=== PATIENT | female | born 1980 | race Caucasian/White ===

== ENCOUNTER 2025-02-14 15:51 | Outpatient (CLI) | payer BC, SELFPAY ==
--- NOTE | ~2025-02-14 | MM_ITS ---
EXAMINATION: MM screening [facility] BI w alisson HISTORY: Screening TECHNIQUE: Craniocaudal and mediolateral oblique 3-D tomosynthesis images were obtained and synthetic 2-D images were generated. CAD analysis was submitted and interpreted. COMPARISON: Baseline BREAST PARENCHYMAL COMPOSITION: The breasts are extremely dense, which lowers the sensitivity of mammography. FINDINGS: Focal asymmetry in the upper-outer quadrant of the right breast, middle to posterior depth with a few indeterminate calcifications. Focal asymmetry in the upper-outer quadrant of the left breast, middle to posterior depth. IMPRESSION: 1. Focal asymmetry in the upper-outer quadrant of the right breast, middle to posterior depth with a few indeterminate calcifications. The study is incomplete. A diagnostic mammogram and a diagnostic ultrasound are recommended. 2. Focal asymmetry in the upper-outer quadrant of the left breast, middle to posterior depth. The study is incomplete. A diagnostic mammogram and a diagnostic ultrasound are recommended. BI-RADS 0: Incomplete-Need additional imaging evaluation. Reviewed, dictated and finalized at location Q. IMPRESSION: 1. Focal asymmetry in the upper-outer quadrant of the right breast, middle to p osterior depth with a few indeterminate calcifications. The study is incomplete . A diagnostic mammogram and a diagnostic ultrasound are recommended. 2. Focal asymmetry in the upper-outer quadrant of the left breast, middle to po sterior depth. The study is incomplete. A diagnostic mammogram and a diagnostic ultrasound are recommended. BI-RADS 0: Incomplete-Need additional imaging evaluation.
--- OUTSIDE RECORDS SUMMARY | 2025-02-14 16:47 | XMS_ITS | Clinical Summary ---
Author Organization [facility] Address Formerly [facility] [place] [address] Care Team Providers Care Cannery Worker Name Role Phone Jennifer Hurt ELIZABETH Primary Care Provider Allergies No known active allergies Medications MONTELUKAST 10 MG tabletIndication s:Seasonal allergies TAKE 1 TABLET(10 MG) BY MOUTH EVERY NIGHT AT BEDTIME 90 tablet 1 02/01/2021 Active fluticasone propionate 50 MCG/ACT nasal spray 1 spray by Nasal route daily. Active cetirizine 10 MG chewable tablet Chew 10 mg by mouth daily. Active azithromycin 250 MG tabletIndication s:Upper respiratory tract infection, unspecified type Take 2 tablets by mouth on day one then 1 daily for four days. 6 tablet 03/06/2021 Active AMITRIPTYLINE 25 MG tabletIndication s:Primary insomnia,Current mild episode of major depressive disorder without prior episode TAKE 1 TABLET(25 MG) BY MOUTH EVERY NIGHT AT BEDTIME 30 tablet 2 03/07/2021 Active Active Problems No known active problems Family History Medical History Relation Comments Hypertension Father Cancer Mother Depression Mother Mental Health Paternal Aunt Diabetes Paternal Grandfather Kidney Disease Paternal Grandfather Kidney Disease Paternal Grandmother Mental Health Paternal Grandmother Depression Sister Asthma Son Cancer Son Stroke Son Relation Status Comments Father Alive Mother Paternal Aunt Paternal Grandfather Paternal Grandmother Sister Son Social History Tobacco Use Types Packs/Day Years Used Date Smoking Tobacco: Never Smokeless Tobacco: Never Tobacco Cessation:Counseling Given: No Alcohol Use Standard Drinks/Week Comments Yes 0 (1 standard drink = 0.6 oz pur e alcohol) Comments No Sex and Gender Information Value Date Recorded Sex Assigned at Not on file Legal Sex Female 8:26 PM CDT Gender Identity Not on file Sexual Orientation Not on file Last Filed Vital Signs Vital Sign Reading Time Taken Comments Blood Pressure 128/80 06/05/2020 12:45 PM HEMSTITCHER Pulse 92 06/05/2020 12:45 PM HEMSTITCHER Temperature 36.4 C (97.5 F) 06/05/2020 12:45 PM HEMSTITCHER Respiratory Rate 16 06/05/2020 12:45 PM HEMSTITCHER Oxygen Saturation 98% 06/05/2020 12:45 PM HEMSTITCHER Inhaled Oxygen Concentration - - Weight 75.8 kg (167 lb) 06/05/2020 12:45 PM HEMSTITCHER Height 157.5 cm (5' 2) 06/05/2020 12:45 PM HEMSTITCHER Body Mass Index 30.54 06/05/2020 12:45 PM HEMSTITCHER Plan of Treatment Health Maintenance Due Date Last Done Comments Cervical Cancer Screening Pa p Smear (Age 30 to 64) Every 3 Years 1982 Hepatitis C 2000 DTaP, Tdap and Td Vaccines ( 1 - Tdap) 2001 Hepatitis B Vaccines (1 of 3 - 19+ 3-dose series) 2001 HPV Vaccines (1 - 3-dose SCD M series) 2009 Cervical Cancer Screening Pa p with HPV Testing (Age 30 to 64) Every 5 Years 2012 Cervical Cancer Screening with HPV 2012 Annual Physical 07/19/2020 07/19/2019 Mammogram Screening 2022 COVID-19 Vaccine ( - 2023-2 5 season) 2025 Meningococcal B Vaccine Aged Out No l onger eligible based on patient's age to complete this topic Meningococcal Vaccine Aged Out No aniya joseline eligible based on patient's age to complete this topic Pneumococcal Vaccine: Pediat rics (0 to 5 Years) and At-Risk Patients (6 to 49 Years) Aged Out No longer eligi ble based on patient's age to complete this topic RSV Immunizations Under 20 Months Aged Out No longer eligible based on patient's age to complete this topic Insurance [facility] Care Teams Cannery Worker Relationship Specialty Start Date End Date Jennifer Hurt [place] [place] [address] PCP - General NURSE PRACTITIONER 06/19/22
--- OUTSIDE RECORDS SUMMARY | 2025-02-14 16:48 | XMS_ITS | Clinical Summary ---
Author Organization [facility] Care Team Providers Care Paralegal Assistant Name Role Phone Unavailable Primary Care Provider Unavailabl e Social History Tobacco Use Types Packs/Day Years Used Date Smoking Tobacco: Never Assessed Comments Unknown Sex and Gender Information Value Date Recorded Sex Assigned at Not on file Legal Sex Female 3:37 PM BEAM WARPER Gender Identity Not on file Sexual Orientation Not on file Plan of Treatment Health Maintenance Due Date Last Done Comments Hepatitis C Virus (HCV) Screening 1982 TdaP Immunization 1982 Hepatitis B Immunization (1 of 3 - 19+ 3-dose series) 2001 Pap Smear 08/02/2003 Human Papillomavirus (HPV) Immunization (1 - 3-dose SCDM series) 2009 Cervical Cancer Screening (CCS) 2012 HPV/Cotest 2012 SARS-COV-2 Immunization ( season) 2024 Influenza Immunization (#1) 2025 Respiratory Syncytial Virus (RSV) Immunization (Adult) (1 - 1-dose 75+ series) 2057 Meningococcal Immunization (ACWY) Aged Out No longer eligible based on patient's age to complete this topic Pneumococcal Immunization Combined Aged Out No longer eligible based on patient's age to complete this topic Rotavirus Immunization Aged Out No lo nger eligible based on patient's age to complete this topic
--- OUTSIDE RECORDS SUMMARY | 2025-02-14 16:48 | XMS_ITS | Clinical Summary ---
Author Organization [facility] ([place], [place]) Address [address] [place] [address] Care Team Providers Care Earth Moving Technician Name Role Phone No, Physician Primary Care Provider [phone] Allergies No known active allergies Medications hydrOXYzine (ATARAX) 25 mg tablet Take 1 tablet (25 mg total) by mouth every 6 (six) hours 20 tablet 01/04/2023 Active Social History Tobacco Use Types Packs/Day Years Used Date Smoking Tobacco: Never Assessed Personal Safety Answer Date Recorded Getting School Help Needed Not on file 01/16 Comments Unknown Sex and Gender Information Value Date Recorded Sex Assigned at Not on file Legal 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 Gender Identity Not on file Sexual Orientation Not on file Last Filed Vital Signs Vital Sign Reading Time Taken Comments Blood Pressure 136/88 01/04/2023 3:55 PM CDT Pulse 88 01/04/2023 4:25 PM CDT Temperature 36.8 C (98.2 F) 01/04/2023 1:36 PM CDT Respiratory Rate 16 01/04/2023 1:36 PM CDT Oxygen Saturation 97% 01/04/2023 4:25 PM CDT Inhaled Oxygen Concentration - - Weight 73.1 kg (161 lb 2.5 oz) 01/04/2023 1:36 P M CDT Height 157.5 cm (5' 2) 01/04/2023 1:36 PM CDT Body Mass Index 29.48 01/04/2023 1:36 PM CDT Plan of Treatment Health Maintenance Due Date Last Done Comments Breast Cancer Screening-Mammogram 1982 Cervical Cancer Screening 1982 Depression Screening 1982 Hepatitis C Screening 1982 DTaP/Tdap/Td Vaccine (1 - Tdap) 1993 Varicella Vaccines (1 of 2 - 13+ 2-dose series) 08/02/1995 Hepatitis B Screening 2000 Regular Well Visit/Exam 18-64 2000 HPV Vaccines (1 - 3-dose SCD M series) 2009 Influenza Vaccine (#1) 2025 Pneumococcal vaccine <65 Aged Out No longer eligible based on patient's age to complete this topic Insurance [facility] Care Teams Earth Moving Technician Relationship Specialty Start Date End Date No, Physician PCP - General 01/04/23
== END 2025-02-14 15:52 | disposition home or self-care (01) ==
LOC: ANHFOHIMG 15:53
PROVIDERS: Visit Provider Obstetrics & Gynecology
DX: Z12.31 Encounter for screening mammogram for malignant neoplasm of breast (principal); N64.89 Other specified disorders of breast
CPT/HCPCS: 77063; 77067

== ENCOUNTER 2025-03-28 10:19 | Outpatient (CLI) | payer BC, SELFPAY ==
--- NOTE | ~2025-03-28 | MMUS_ITS ---
EXAMINATION: MM diagnostic [facility] BI w alisson, US breast BI complete HISTORY: Follow-up breast asymmetries. TECHNIQUE: Additional 3-D tomosynthesis images of the breasts were performed and synthetic 2-D images were generated. CAD analysis was submitted and interpreted. High resolution bilateral complete breast ultrasound was performed. COMPARISON: 02/14/2025 BREAST PARENCHYMAL COMPOSITION: Dense: The breasts are extremely dense, which lowers the sensitivity of mammography. FINDINGS: MAMMOGRAPHIC FINDINGS: There are no suspicious masses, calcifications or architectural distortion in either breast to suggest malignancy. There are benign layering breast calcifications bilaterally. ULTRASOUND: Complete US of all 4 quadrants of the breast/s and retroareolar region was reviewed. At 9:00, 3.5 cm from the nipple there is a 12 mm cyst. No suspicious masses are identified in the right breast to suggest malignancy. Left breast: At 3:00, 3 cm from the nipple there is a 9 mm cyst. At 8:00, 9 cm from the nipple there is a superficial oval hypoechoic mass with peripheral echogenic foci dependently, possibly layering calcification, likely benign measuring 4 mm. IMPRESSION: 1. No evidence for malignancy in the right breast. Probable benign left breast mass at 8:00, 9 cm from the nipple. 2. Recommend 6 month follow-up Limited left breast ultrasound. BI-RADS category 3, probably benign findings. Reviewed, dictated and finalized at location B. IMPRESSION: 1. No evidence for malignancy in the right breast. Probable benign left breast mass at 8:00, 9 cm from the nipple. 2. Recommend 6 month follow-up Limited left breast ultrasound. BI-RADS category 3, probably benign findings.
--- OUTSIDE RECORDS SUMMARY | 2025-03-28 11:49 | XMS_ITS | Clinical Summary ---
Author Organization [facility] Address [facility] [place] [address] Care Team Providers Care Assistant Professor Of Radiology Name Role Phone Jennifer Hurt ELIZABETH Primary Care Provider [phone] Allergies No known active allergies Medications MONTELUKAST [...] Comments Blood Pressure 128/80 06/05/2020 12:45 PM EXTRUSION SUPERVISOR Pulse 92 06/05/2020 12:45 PM EXTRUSION SUPERVISOR Temperature 36.4 C (97.5 F) 06/05/2020 12:45 PM EXTRUSION SUPERVISOR Respiratory Rate 16 06/05/2020 12:45 PM EXTRUSION SUPERVISOR Oxygen Saturation 98% 06/05/2020 12:45 PM EXTRUSION SUPERVISOR Inhaled Oxygen Concentration - - Weight 75.8 kg (167 lb) 06/05/2020 12:45 PM EXTRUSION SUPERVISOR Height 157.5 cm (5' 2) 06/05/2020 12:45 PM EXTRUSION SUPERVISOR Body Mass Index 30.54 06/05/2020 12:45 PM EXTRUSION SUPERVISOR Plan of Treatment Health Maintenance Due Date [...] Mammogram Screening 2022 COVID-19 Vaccine ( - 2024-2 6 season) 2025 Influenza Adult (#1) 2025 Hepatitis A Vaccines Aged Out No long er eligible based on patient's age to complete this topic Meningococcal B Vaccine Aged Out No l [...] patient's age to complete this topic Insurance [facility] Care Teams Assistant Professor Of Radiology Relationship Specialty Start Date End Date Jennifer H[place] [address] [place] [address] PCP - General NURSE PRACTITIONER 06/19/22
--- OUTSIDE RECORDS SUMMARY | 2025-03-28 11:49 | XMS_ITS | Clinical Summary ---
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
--- OUTSIDE RECORDS SUMMARY | 2025-03-28 11:49 | XMS_ITS | Clinical Summary ---
Author Organization [facility] Address [address] [place] [address] Care Team Providers Care Fiscal Economist Name Role Phone No, Physician Primary Care Provider [phone] Allergies No known active allergies Medications hydrOXYzine [...] on file Legal Sex Female 4:12 AM RESPONDER Gender Identity Not on file Sexual Orientation [...] patient's age to complete this topic Insurance [facility] Care Teams Fiscal Economist Relationship Specialty Start Date End Date No, Physician PCP - General 01/04/23
== END 2025-03-28 10:20 | disposition home or self-care (01) ==
LOC: ANHFOHIMG 10:22
PROVIDERS: Visit Provider Obstetrics & Gynecology
DX: R92.8 Other abnormal and inconclusive findings on diagnostic imaging of breast (principal)
CPT/HCPCS: 76641; 77062; 77066; G0279